=== PATIENT | male | born 1975 | race Caucasian/White ===

== ENCOUNTER → 2018-06-20 08:42 | Outpatient (CLI) | payer OTHER, SELFPAY ==
--- NOTE | 2018-06-20 14:50 | NEURO ---
NCS and/or EMG Patient Report Ordering Doctor: Ni Ramirez DATE OF SERVICE: 06/20/18 Angel Ramos is a 42-year-old male presents for electrodiagnostic testing of the upper limbs. Reports numbness primarily in the fourth and fifth digits of each hand. Electrodiagnostic findings: Median motor nerve demonstrates normal distal latency amplitude and conduction velocity bilaterally. Right ulnar motor nerve demonstrates normal distal latency and amplitude with reduced conduction velocity of approximately 25% across the elbow. Normal left ulnar motor response, including conduction across the elbow. Normal median and ulnar F waves. Sensory responses are within normal limits. 1+ fibrillations are noted in the right flexor carpi ulnaris. Electrodiagnostic impression: This is an abnormal study in the upper limbs 1. Electrodiagnostic findings demonstrate right-sided ulnar neuropathy, consistent with a mild to moderate right cubital tunnel syndrome. There is no electrodiagnostic evidence for a left-sided cubital tunnel syndrome. Number 2. No electrodiagnostic evidence is noted for median neuropathy, i.e. carpal tunnel syndrome. 3. No electrodiagnostic evidence for cervical radiculopathy. If there are any further questions, please do not hesitate to contact me
== END ==
PROVIDERS: Family Provider Family Medicine; PCP Family Medicine
DX: R20.0 Anesthesia of skin (principal)
CPT/HCPCS: 95886; 95913

== ENCOUNTER 2019-04-20 13:25 | Emergency (ER) | payer OTHER, SELFPAY ==
[2019-04-20 13:26] VITALS: BP 153/88; PULSE 80; RESP 16; TEMP 36.5; O2SAT 98; BMI 24.6
--- NOTE | 2019-04-20 14:52 | ED.VISSUMM ---
- ER Visit Summary Date of Service: 04/20/19 Chief Complaint: Forearm laceration History of Present Illness: The patient is a 43 M who was using a drill grinder when it slipped and cut his left forearm. He notes his tetanus is up-to-date. Physical Examination: Afebrile vital signs stable Gen: Well-nourished well-developed Head: Normocephalic atraumatic Eyes: Perrl EOMI ENT: TMs clear no rhinorrhea moist mucous membranes Neck: Supple no lymphadenopathy no JVD nontender CVS: Regular rate rhythm no murmurs normal S1-S2 Respiratory: No distress clear to auscultation bilaterally chest nontender Abdomen: Soft nontender nondistended normal bowel sounds no masses Back: Nontender Extremity: There is a 9 cm V-shaped laceration the dorsal aspect of the left forearm. There is a flap-like laceration down to the muscle fascia but does not appear to violate the fascia. There is a 2 cm linear left forearm laceration just medial and posterior to the first laceration. It has some mild venous I do not see any muscle violation. Both of these wounds are heavily contaminated with metal debris patient can hold his all of his fingers in extension. He does note that the left ring finger appears weaker than the others. Skin: Normal color no rash Neuro: alert orientated ?3 CN II-XII intact normal strength sensation reflexes gait cerebellar Psych: Normal affect normal mood Emergency Department Course and Treatment: Wounds were locally anesthetized using 1% lidocaine. They washed with Shur-Clens irrigated with approximately 1 L of sterile saline. Over 15 small metallic foreign bodies were removed. A total of 16 simple interrupted 4-0 Ethilon sutures were placed to close the wound. Wound care was discussed with patient. Patient was advised that there may be retained foreign bodies. Should he develop complications such as infection or inflammatory response he should return and follow-up with his doctors. Impression: 1. 9 cm left forearm laceration with repair 2. 2 cm left forearm laceration with This note was generated with [employer] dictation software. It may contain incorrect words, spelling, and punctuation that were not noted in review of the chart prior to signing ED Disposition - Plan for ED Patient: Disposition: Home or Assisted Living Instructions: LACERATION, All Referrals: Daniel Small MD [Primary Care Provider] - (In 7 to 10 days for suture removal)
[2019-04-20 15:09] VITALS: RESP 18
== END 2019-04-20 15:10 | disposition home or self-care (01) ==
PROVIDERS: Emergency Provider Emergency Medicine; Family Provider Family Medicine; PCP Family Medicine
DX: S51.822A Laceration with foreign body of left forearm, initial encounter (principal); W26.8XXA Contact with other sharp object(s), not elsewhere classified, initial encounter; Y93.9 Activity, unspecified; Y92.9 Unspecified place or not applicable; E11.9 Type 2 diabetes mellitus without complications
CPT/HCPCS: 12004; 99283

== ENCOUNTER → 2020-03-05 17:47 | Outpatient (CLI) | payer OTHER, SELFPAY | PROVIDERS: PCP Family Medicine; Referring Provider Nurse Practitioner Primary Care; Visit Provider Nurse Practitioner Primary Care | DX: Z20.828 Contact with and (suspected) exposure to other viral communicable diseases (principal) | CPT/HCPCS: 87635; 94799; U0003 ==

== ENCOUNTER → 2024-11-12 | Outpatient (CLI) | payer OTHER, SELFPAY ==
--- NOTE | 2024-11-12 07:32 | US_ITS ---
PROCEDURE: ABD LIMITED W/ ELASTOGRAPHY, 11/12/2024 REASON FOR EXAM: NODULAR LIVER COMPARISON: None TECHNIQUE: Grayscale and color Doppler imaging of the right upper quadrant was performed. Elastography was performed for non-invasive assessment of liver tissue stiffness utilizing a 9GAG S-shear wave imaging unit. FINDINGS: Liver: Echogenic. 15.7 cm in length. Gallbladder: No visualized stones, sludge, wall thickening or pericholecystic fluid. Reportedly, sonographic Lockhart's was negative. Biliary tree: Unremarkable. CBD measures 3 mm. Pancreas: Largely obscured by shadowing bowel gas. Right kidney: Unremarkable. 10.5 cm in length. Other: No visualized free fluid. Hepatic elastography: Number of measurements: 15 measurements across 3 regions, 5 measurements per region. US probe: CA1-7A. EQI median: 15.6 kPa EQI median velocity: 2.3 m/s IQR/Med: 8.5-15.3% (kPa) and 4.2-7.6% (m/s). If the IQR/Med is IQR/median >30% (for kPa) or >15% in m/s, the variance in the measurements is a large and the accuracy of the measurement may be in question. US/ABD Limited w/ Elastography IMPRESSION: 1. Appearance of the hepatic parenchyma typically associated with hepatic steat osis although fibrosis/early cirrhosis could also have this appearance. Correlate with clinical and laboratory evaluation. 2. Liver stiffness is 15.6 kPa. Per the below 2020 SRU criteria, this rules in compensated advanced chronic liver disease. 3. Additional description as above. Assessment is per the Update to the SRU Liver Elastography Consensus Statement (2020) Note that the above assessment of liver fibrosis is vendor-neutral and intended for use in fibrosis related to viral etiologies and non-alcoholic fatty-liver disease (NAFLD); in causes other than viral hepat itis and NAFLD, the cutoff values are currently not well established. In some patients with NAFLD, the cutoff values for cACLD may be lower (7-9 kPa). Note also that in the setting of elevated LFTs, nonfasting or vascular congestion, the stage of lifer fibrosis may be overestimated. Previous U reference values: <1.37 m/s (5.7kPa): No to mild fibrosis 1.37 m/s - 2.2 m/s: Moderate to severe fibrosis >2.2 m/s (15kPa): Significant fibrosis / cirrhosis Reading Location: [id number]
[2024-11-12 15:37] LABS: Ammonia 34.6 umol/L (16-60)
[2024-11-12 15:40] LABS: Absolute Lymphocyte Count 0.81 X10^3/uL (0.83-4.51); Absolute Neutrophil Count 2.5 X10^3/uL (2.0-7.7); Basophil# 0.04 X10^3/uL; Basophil% 1.1 % (0-1); Eosinophil# 0.05 X10^3/uL; Eosinophils% 1.3 % (0-5); Hematocrit 43.9 % (40-54); Lymphocyte # 0.81 X10^3/ul (0.83-4.51); Lymphocyte % 21.7 % (19-41); Mean Corp Hgb Conc 34.2 g/dL (32-36); Mean Corpuscular Hgb 29.9 pg (27.0-32.0); Mean Corpuscular Volume 87.5 fL (80-94); Mean Platelet Vol. 10.7 fl (6.2-12.0); Monocyte# 0.31 X10^3/uL; Monocyte% 8.3 % (0-10); NRBC Flagged by Analyzer 0 % (0-5); Neutrophil # 2.52 X10^3/uL (2.7-7.7); Neutrophil % 67.6 % (47-70); Platelet Count 117 K/mm3 (150-450); RBC Distribution Width CV 12.5 % (11.6-14.6); RBC Distribution Width SD 39.7 fl (35.1-43.9); Red Blood Count 5.02 M/mm3 (4.6-6.2); White Blood Count 3.7 K/mm3 (4.4-11.0)
[2024-11-12 16:03] LABS: International Normalized Ratio 1.1; Prothrombin Time (Protime)PT. 14.1 SECONDS (11.7-14.9)
[2024-11-12 16:18] LABS: ALB/GLOB Ratio 1.5 RATIO (0.9-2.4); AST(SGOT) 31 U/L (<=37); Alanine Aminotransfer ALT/SGPT 33 U/L (<=46); Albumin, Serum 4.2 g/dL (3.5-5.0); Alkaline Phosphatase 124 U/L (40-129); Anion Gap 13 (5-15); BUN 9 mg/dL (4-19); BUN/Creat Ratio 8.9 RATIO (10-20); Calcium,Total 9.3 mg/dL (7.6-11.0); Chloride 100 mmol/L (98-108); Creatinine, Serum 0.99 mg/dL (0.70-1.20); EST Glomerular Filtration Rate 93 (>60); Globulin 2.9 g/dL (2.2-4.2); Glucose 157 mg/dL (70-99); Potassium 3.5 mmol/L (3.3-5.1); Protein, Total 7.2 g/dL (5.9-8.4); Sodium Level 135 mmol/L (133-145); Total Bilirubin 0.52 mg/dL (0.00-1.30)
[2024-11-12 16:20] LABS: CRP < 3.00 mg/L (0.0-3.0)
[2024-11-12 16:36] LABS: Hemoglobin A1c 6.5 % (<=5.6)
[2024-11-12 18:10] LABS: Erythrocyte Sedimentation Rate 5 mm/hr (0-20)
[2024-11-14 16:08] LABS: Anti-Centromere B Ab <0.2 AI (0.0-0.9); Anti-Chromatin <0.2 AI (0.0-0.9); Anti-Jo <0.2 AI (0.0-0.9); Anti-Mitochondrial AB <20.0 Units (0.0-20.0); Anti-Scleroderma-70 AB <0.2 AI (0.0-0.9); Anti-dsDNA Ab <1 IU/mL (0-9); RNP Ab <0.2 AI (0.0-0.9); SJOGREN'S Anti-SS-A test < 0.2 AI (0.0-0.9); SJOGREN'S Anti-SS-B test < 0.2 AI (0.0-0.9); Smith Ab <0.2 AI (0.0-0.9)
[2024-11-16 03:07] LABS: Angiotensin Convert Enzyme 57 U/L (14-82); Anti-Smooth Muscle ABS 6 Units (0-19); Ceruloplasmin 21.1 mg/dL (16.0-31.0); Copper, Serum or Plasma 86 ug/dL (69-132); Cytoplasmic Ab (C-ANCA) <1:20 titer (Neg:<1:20); HEPATITIS B SURFACE AG Negative (Negative); Hep C Antibodies Non Reactive (Non Reactive); Hepatitis A IgM Antibody Negative (Negative); Hepatitis B Core AB IgM Negative (Negative); Perinuclear Ab (P-ANCA) <1:20 titer (Neg:<1:20)
== END | disposition home or self-care (01) ==
PROVIDERS: PCP Family Medicine; Referring Provider Student in an Organized Health Care Education/Training Program; Visit Provider Student in an Organized Health Care Education/Training Program
DX: R19.7 Diarrhea, unspecified (principal); K74.60 Unspecified cirrhosis of liver; R10.9 Unspecified abdominal pain
CPT/HCPCS: 36415; 76705; 76981; 80053; 80074; 82105; 82140; 82164; 82390; 82525; 83036; 83516; 85025; 85610; 85652; 86037; 86140; 86225; 86235

== ENCOUNTER 2025-01-16 10:54 | Day surgery (SDC) | payer OTHER, SELFPAY ==
[2025-01-16] VITALS (11 sets, daily range): BP systolic 78–111; BP diastolic 43–77; PULSE 49–65; RESP 14–18; TEMP 35.8–36.6; O2SAT 98–100; BMI 22.4
[2025-01-16] MEDS: Lactated Ringers 1,000 ML 15 ML IV (11:32)
== END 2025-01-16 14:07 | disposition home or self-care (01) ==
LOC: EN 10:55 → AC 10:57
PROVIDERS: PCP Nurse Practitioner Family; Referring Provider Nurse Practitioner Family; Visit Provider Internal Medicine Gastroenterology
PROC: 0DJD8ZZ Inspection of Lower Intestinal Tract, Via Natural or Artificial Opening Endoscopic (ICD-10-PCS; CPT 45378; principal; 2025-01-16 12:10)
DX: R10.9 Unspecified abdominal pain (principal); K74.60 Unspecified cirrhosis of liver; E11.9 Type 2 diabetes mellitus without complications; K57.30 Diverticulosis of large intestine without perforation or abscess without bleeding; Z79.85 Long-term (current) use of injectable non-insulin antidiabetic drugs; K76.89 Other specified diseases of liver; K63.5 Polyp of colon; Z87.891 Personal history of nicotine dependence; R19.7 Diarrhea, unspecified; E78.00 Pure hypercholesterolemia, unspecified; K58.9 Irritable bowel syndrome, unspecified; Z90.49 Acquired absence of other specified parts of digestive tract; K22.89 Other specified disease of esophagus; K31.89 Other diseases of stomach and duodenum
CPT/HCPCS: 45385; 43239; 82962; 88305; 88342

== ENCOUNTER → 2025-02-18 | Outpatient (CLI) | payer OTHER, SELFPAY | END | disposition home or self-care (01) | LOC: LAB 08:37 | PROVIDERS: PCP Nurse Practitioner Family; Referring Provider Internal Medicine; Visit Provider Internal Medicine | DX: K74.60 Unspecified cirrhosis of liver (principal); E11.9 Type 2 diabetes mellitus without complications; F10.90 Alcohol use, unspecified, uncomplicated; R10.9 Unspecified abdominal pain; E78.5 Hyperlipidemia, unspecified | CPT/HCPCS: 80053; 80061; 82140; 82306; 82607; 82728; 82746; 82784; 82977; 83036; 83540; 83550; 84165; 84443; 85610; 86038; 86140; 86225; 86235; 86334; 86706 ==

== ENCOUNTER → 2025-03-04 | Outpatient (CLI) | payer OTHER, SELFPAY ==
[2025-03-04 09:15] LABS: Hematocrit 47.7 % (40-54); Hemoglobin 16.2 g/dL (13.0-16.5); Immature Granulocytes Count 0.020 X10^3/uL (0.0-0.0); Mean Corp Hgb Conc 34.0 g/dL (32-36); Mean Corpuscular Volume 87.5 fL (80-94); Mean Platelet Vol. 10.3 fl (6.2-12.0); NRBC Flagged by Analyzer 0 % (0-5); Platelet Count 133 K/mm3 (150-450); RBC Distribution Width CV 12.4 % (11.6-14.6); RBC Distribution Width SD 40.0 fl (35.1-43.9); Red Blood Count 5.45 M/mm3 (4.6-6.2); White Blood Count 7.1 K/mm3 (4.4-11.0)
[2025-03-04 09:28] LABS: Ammonia 26.6 umol/L (16-60)
[2025-03-04 10:05] LABS: AST(SGOT) 31 U/L (<=37); Alanine Aminotransfer ALT/SGPT 38 U/L (<=46); Albumin, Serum 4.6 g/dL (3.5-5.0); Alkaline Phosphatase 94 U/L (40-129); Anion Gap 12 (5-15); BUN 11 mg/dL (4-19); BUN/Creat Ratio 10.4 RATIO (10-20); Calcium,Total 9.8 mg/dL (7.6-11.0); Carbon Dioxide 23.8 mmol/L (21.0-32.0); Chloride 105 mmol/L (98-108); Globulin 3.0 g/dL (2.2-4.2); Glucose 96 mg/dL (70-99); Potassium 4.3 mmol/L (3.3-5.1); Vitamin B12 1101 pg/mL (180-914); Vitamin D,25 Hydroxy 40.0 ng/mL (30-100)
[2025-03-04 10:34] LABS: FOLATES,SERUM (FOLIC ACID) 31.70 ng/mL (4.60-34.80)
[2025-03-09 16:07] LABS: Testosterone, % Free 1.57 % (1.50-4.20); Testosterone, Free 12.73 ng/dL (5.00-21.00)
== END | disposition home or self-care (01) ==
PROVIDERS: PCP Nurse Practitioner Family; Referring Provider Nurse Practitioner Family; Visit Provider Nurse Practitioner Family
DX: K74.60 Unspecified cirrhosis of liver (principal); E11.9 Type 2 diabetes mellitus without complications; F10.90 Alcohol use, unspecified, uncomplicated; R53.83 Other fatigue
CPT/HCPCS: 36415; 80053; 82140; 82306; 82607; 82746; 84402; 84403; 84443; 85025

== ENCOUNTER → 2025-03-07 | Outpatient (CLI) | payer OTHER, SELFPAY ==
[2025-03-07 09:14] LABS: Prothrombin Time (Protime)PT. 14.8 SECONDS (11.7-14.9)
[2025-03-07 09:40] LABS: Cholesterol 98 mg/dL (<=200); Low Density Lipoprotein Calc. 28 mg/dL; Triglycerides 138 mg/dL; Very Low Density Lipoprotein 28 mg/dL (5-40); cholesterol:hdl ratio screen 2.30
== END | disposition home or self-care (01) ==
LOC: LAB 08:32
PROVIDERS: PCP Nurse Practitioner Family; Referring Provider Internal Medicine; Visit Provider Internal Medicine
DX: E78.5 Hyperlipidemia, unspecified (principal); K74.60 Unspecified cirrhosis of liver; R10.9 Unspecified abdominal pain
CPT/HCPCS: 36415; 80061; 85610

== ENCOUNTER → 2025-07-15 | Outpatient (CLI) | payer OTHER, SELFPAY | END | disposition home or self-care (01) | LOC: SL 09:27 | PROVIDERS: PCP Nurse Practitioner Family; Referring Provider Nurse Practitioner Family; Visit Provider Nurse Practitioner Family | DX: G47.10 Hypersomnia, unspecified (principal) | CPT/HCPCS: 95806 ==